=== PATIENT | male | born 2000 | race Asian ===

== ENCOUNTER 2025-11-05 00:35 | Emergency (ER) | payer OTHER ==
[~2025-11-05] VITALS: Ht 180.3 cm; Wt 68.9 kg
[2025-11-05 00:46] VITALS: PULSE 80; RESP 16; O2SAT 97
[2025-11-05 00:48] VITALS: BP 134/79; TEMP 36.8; O2SAT 100
[2025-11-05 04:53] LABS: HIV 1/2 AB P24AG Negative (Negative)
[2025-11-05 06:26] LABS: HEPATITIS C VIR.AB 0.06 INDEXVAL (0.00-0.80)
[2025-11-05 07:59] LABS: HEPATITIS C VIR.AB 0.06 INDEXVAL (0.00-0.80); HIV 1/2 AB P24AG Negative (Negative)
== END 2025-11-05 06:57 | disposition home or self-care (01) ==
LOC: ER 00:35
DX: Z77.21 Contact with and (suspected) exposure to potentially hazardous body fluids (principal); Z57.8 Occupational exposure to other risk factors; W46.0XXA Contact with hypodermic needle, initial encounter; Y99.0 Civilian activity done for income or pay; X58.XXXA Exposure to other specified factors, initial encounter; Y93.89 Activity, other specified; Y92.89 Other specified places as the place of occurrence of the external cause
CPT/HCPCS: 36415; 99283